=== PATIENT | male | born 1965 | race Caucasian/White ===

== ENCOUNTER 2019-01-28 12:15 | Emergency (ER) | payer BC ==
[~2019-01-28] VITALS: Ht 175.3 cm; Wt 110.2 kg
[~2019-01-28 12:15] MED LIST: COUMADIN 10MG T10 M1 PO; LOVENOX SQ; NORCO 5-325 TA1 EACH PO
[2019-01-28] MEDS ORDERED: CRESTOR10 MG PO (12:49)
[2019-01-28] MEDS ORDERED: METFORMIN HCL500 MG PO (12:49)
[2019-01-28] MEDS ORDERED: XARELTO20 MG PO (12:50)
[2019-01-28] MEDS ORDERED: JARDIANCE10 MG PO (12:50)
[2019-01-28] MEDS ORDERED: GABAPENTIN 100100 MG PO (12:50)
[2019-01-28] MEDS ORDERED: JANUVIA25 MG SUBQ (12:51)
[2019-01-28 12:58] LABS: BE(vivo) 0.1 mmol/L (-2 to +3); HCO3 22.7 mmol/L (22.0-26.0); PCO2 VENOUS 31.6 mmHg (41.0-51.0); PO2 VENOUS 91.8 mmHg (35.0-45.0)
[2019-01-28 13:57] VITALS: BP 130/80
== END 2019-01-28 13:57 | disposition home or self-care (01) ==
LOC: ER 12:15
PROVIDERS: Emergency Medicine
DX: M54.2 Cervicalgia (principal); Z77.098 Contact with and (suspected) exposure to other hazardous, chiefly nonmedicinal, chemicals; E11.9 Type 2 diabetes mellitus without complications; M19.90 Unspecified osteoarthritis, unspecified site; Z88.0 Allergy status to penicillin

== ENCOUNTER 2019-10-20 15:20 | Inpatient (IN) | payer BC ==
[~2019-10-20] VITALS: Ht 175.3 cm; Wt 112.0 kg
[~2019-10-20 15:20] MED LIST changes: +CRESTOR10 MG PO; +GABAPENTIN 100100 MG PO; +JANUVIA25 MG SUBQ; +JARDIANCE10 MG PO; +METFORMIN HCL500 MG PO; +XARELTO20 MG PO
[2019-10-20 15:24] VITALS: BP 115/65
[2019-10-20 16:52] LABS: ABSOLUTE NEUTROPHILS 14.5 thou/uL (1.4-8.2); BASOPHILS 0.4 % (0.0-2.0); EOSINOPHILS 0.2 % (0.0-3.0); HEMOGLOBIN 14.1 gm/dL (14.0-18.0); LYMPHOCYTES 5.4 % (24.0-44.0); MCH 28.9 pg (26.0-34.0); MCHC 33.5 g/dL (28.0-37.0); MCV 86.3 fL (80.0-100.0); PLATELET COUNT 356 thou/uL (150-400); RBC 4.86 mil/uL (4.50-6.00); RDW 14.5 % (10.5-14.5); WBC 17.2 thou/uL (4.0-11.0)
[2019-10-20 17:00] LABS: CALCIUM 9.4 mg/dL (8.5-10.1); CREATININE 1.2 mg/dL (0.7-1.3)
[2019-10-20 17:07] LABS: ALBUMIN 2.7 g/dL (3.4-5.0); TOTAL BILIRUBIN 0.7 mg/dL (<0.1-1.0); TOTAL PROTEIN 8.3 g/dL (6.4-8.2)
[2019-10-20 17:29] VITALS: BP 126/73
[2019-10-20] MEDS ORDERED: KETOCONAZOLE15 GM TOP (17:37)
[2019-10-20] MEDS ORDERED: ZEASORB AF71 GM TOP (17:37)
[2019-10-20] MEDS ORDERED: CEFDINIR300 MG PO (17:37)
[2019-10-20] MEDS ORDERED: MIRALAX119 GM PO (17:38)
[2019-10-20] MEDS ORDERED: NORCO 7.5-3251 EACH PO (17:38)
[2019-10-20] MEDS ORDERED: XARELTO15 MG PO (17:38)
[2019-10-20] MEDS ORDERED: MECLIZINE HCL25 M1 PO (17:39)
[2019-10-20] MEDS ORDERED: FLOMAX0.4 MG PO (17:40)
[2019-10-20] MEDS ORDERED: MUCINEX DM ER1 EACH PO (17:41)
[2019-10-20] MEDS ORDERED: SYMBICORT160 MCG/4. INH (17:41)
[2019-10-20] MEDS ORDERED: FLEXERIL PO (17:42)
[2019-10-20] MEDS ORDERED: DEMADEX20 MG PO (17:43)
[2019-10-20] MEDS ORDERED: VIAGRA100 MG PO (17:43)
[2019-10-20] MEDS ORDERED: ROSUVASTATIN CA20 MG PO (17:43)
[2019-10-20 18:26] VITALS: BP 124/68
--- NOTE | 2019-10-20 18:50 | NUR ---
54 YO MALE ADMITTED TO 439 FROM ED. A&OX4, AMBULATES SELF IN ROOM. IV INTACT IN R AC. VSS. L PLANTER HAS PUNCTURE THAT IS DRAINING SEROUSANG. FLUID. VSS. L FOOT AND LEG IS RED, SWOLLEN AND WARM TO TOUCH. PT HAS TYPE 2 DM. ORIENTED PT TO ROOM AND CALL LIGHT. LUNCH BOX TRAY GIVEN. WILL CONT POC.
[2019-10-20 19:37] VITALS: BP 145/76
--- NOTE | 2019-10-20 22:59 | NUR ---
PT JUST ESCORTED OUT OF THE BUILDING BY SECURITY. PT LEFT AMA.HE SIGNED AMA PAPERS.
--- NOTE | 2019-10-21 00:44 | NUR ---
PT DC/D BY ERROR-READMITTED
[2019-10-21 04:25] VITALS: BP 120/66
[2019-10-21 05:07] LABS: GLYCOHEMOGLOBIN (HGB A1C) 9.5 % (4.8-5.6)
--- NOTE | 2019-10-21 06:12 | NUR ---
ADMISSION ASSESSMENT COMPLETED. PT IS ALERT AND ORIENTED AND ABULATES WELL. HOWEVER BEEN USING URINAL THRO THE NIGHT.AFEBRILE. LEFT FOOT WITH SWELLING, REDNESS AND WARMTH. RATES PAIN AT AROUND 5-7/10; GETTING HYDROCODONE WITH RELIEF. STARTED ON IV ABTS. PT ATE SOME BOXED DINNER WELL. NO GI DISCOMFORT.NO DISTRESS.CALL LIGHT WITHIN REACH. HE MAKES NEEDS KNOWN.
[2019-10-21 08:30] VITALS: BP 127/72
--- NOTE | 2019-10-21 12:48 | NUR ---
PT ADMITTED RELATED TO CELLULITIS L FOOT. CM REVIEWED CHART AND SPOKE WITH CARE TEAM. CM SPOKE WITH PT OVER THE PHONE THIS DAY. PT APPEARED TO BE A&O X4. CM ROLE INTRODUCED. PT INDICATED HE LIVES ALONE IN A HOUSE WITH 2 STEPS TO ENTER AND NO INSIDE. 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 PT INDICATED HE ANTICIAPTES RETURNING HOME ONCE MEDICALLY STABLE. CM TO FOLLOW INDICATED WITH DC PLANNING.
[2019-10-21 15:38] VITALS: BP 140/86
--- NOTE | 2019-10-21 16:40 | NUR ---
PT A&OX4. AMBULTES SELF IN ROOM. IV INTACT IN R AC. L FOOT IS SWOLLEN, RED AND WARM TO TOUCH. VSS NO TEMP TODAY. TOLERATING PO PAIN MED WELL. US HAS BEEN COMPLETE. WILL CONT POC.
[2019-10-21 21:52] VITALS: BP 119/70
--- NOTE | 2019-10-22 03:03 | NUR ---
ASSUMED PT CARE AT 1900. PT REPORTS PAIN 4/10, PAIN MEDS GIVEN BEFORE BED. L FOOT DRESSING DRY AND INTACT. PT USES URINAL. ANTIBIOTICS INFUSING PER ORDER. CURRENTLY RESTING COMFORTABLY IN BED WITH CALL LIGHT IN REACH.
[2019-10-22 08:10] VITALS: BP 135/70
--- NOTE | 2019-10-22 14:38 | NUR ---
PT HAVING MRI THIS DAY. CARE TEAM INDICATING POSSIBLE 5TH RAY AMPUTATION. CM TO FOLLOW INDICATED WITH DC PLANNING.
--- NOTE | 2019-10-22 14:56 | NUR ---
WOUND CARE F/U; ROUNDING WITH DR GOMEZ. THE LEFT 5TH TOE WAS ASSESSED. DISCOLORED,NON VIABLE LOOKING. TENDER. NO ODOR. RECOMMENDATIONS; CONTINUE CURRENT POC
--- NOTE | 2019-10-22 20:05 | NUR ---
ASSUMED CARE OF PATIENT AT 0715, PATIENT ALERT AND ORIENTED X 4. UP AD VADIM IN ROOM. LEFT FOOT CELLULITIS, ORTHO/DR CARRENO SAW THE PATIENT THIS AM, MRI ORDERED OF LEFT FOOT. C/O PAIN WITH LEFT FOOT, HYDROCODONE 1 TABLET GIVEN X 2 THIS SHIFT. NEW IV LEFT HAND IN PLACE. WILL CONTINUE TO MONITOR.
[2019-10-22 21:32] VITALS: BP 131/75
[2019-10-23 05:07] VITALS: BP 123/71
[2019-10-23 06:10] LABS: HEMOGLOBIN 13.7 gm/dL (14.0-18.0); MCHC 33.4 g/dL (28.0-37.0); RBC 4.72 mil/uL (4.50-6.00); RDW 14.3 % (10.5-14.5); WBC 8.6 thou/uL (4.0-11.0)
[2019-10-23 06:18] LABS: CALCIUM 9.7 mg/dL (8.5-10.1); CREATININE 1.2 mg/dL (0.7-1.3); POTASSIUM 4.2 mmol/L (3.5-5.1)
[2019-10-23 07:15] VITALS: BP 115/63
--- NOTE | 2019-10-23 09:18 | NUR ---
PROGRESS PT A/O X 4 UP AD VADIM HAD TEMP OF 102.5 AT SHIFT CHANGE HYDROCODONE GIVEN WITH EFFECT TEMP DOWN TO 99.2 ON RECHECK. LEFT FOOT DRESSING CHANGED D/T SATURATED WITH BLOOD LEFT 5TH TOE DUSKY SWOLLEN WITH ALOT OF EXUDATE BETWEEN TOES CLEANSED WITH NS WRAPPED WITH GAUZE, KERLIX ABD AND LEX WRAP. IV ABT'S GIVEN ORDERED PT NPO AFTER MIDNIGHT PENDING DEBRIDEMENT TODAY.
--- NOTE | 2019-10-23 11:51 | NUR ---
ASSUMED CARE AT 0700. PT ALERT AND ORIENTED. NO COMPLAINTS AT THIS TIME. BLOOD SUGARS ARE HIGH, TOLERATING CARB CONTROL DIET. PAIN MEDS GIVEN PRN. DRESSING C/D/I. WILL CONTINUE TO MONITOR
--- NOTE | 2019-10-23 14:58 | NUR ---
PT HAD MRI THIS DAY CARE TEAM PLANS FOR I AND D OF ANSCESSES AND 5TH TOE PARTIAL FOOT AMPUTATION TOMORROW. PT CONTINUES ON IV ABX. CM TO FOLLOW INDICATED WITH DC PLANNING.
[2019-10-23 19:50] VITALS: BP 133/70
--- NOTE | 2019-10-24 02:58 | NUR ---
ASSESSED AT START OF SHIFT PT A&OX4. IV INTACT AND ABX INFUISING. LFT FOOT DRESSING INTACT. PAIN MEDS GIVEN SEE EMAR. BLOOD SUGAR CHECKED AND INSULIN ADMINISTERED. PT NPO AT MIDNIGHT. CALL LIGHT IN REACH AND WILL CONT WITH POC TILL EOS.
[2019-10-24 03:35] VITALS: BP 109/58
[2019-10-24 07:25] VITALS: BP 127/71
--- NOTE | 2019-10-24 10:48 | HC ---
[facility] [place] [address] CONSULTATION Name: AJ BAIRES Room #: 439-P ADM IN M.R.#: [id number] Admission: 10/20/19 Attend Phys: Shaquille Jamil MD Discharge: Date of : 67 Report #: [id number] THIS REPORT FOR: cc: Oscar Manzanares MD, Thomas P. MD Al-Mubaslat, Ahmad MD ~ CC: Shaquille Manzanares DATE OF SERVICE: 10/23/2019 ENDOCRINE CONSULTATION CONSULTING PHYSICIAN: Dr. Jamil. REASON FOR CONSULTATION: Uncontrolled type 2 diabetes mellitus. HISTORY OF PRESENT ILLNESS: This is a 54-year-old male patient whose medical background is significant for type 2 diabetes mellitus, peripheral diabetic neuropathy, thromboembolic disease, hyperlipidemia, and hypertension. The patient has been dealing with progressive issues pertaining to a puncture wound of the left foot that has not responded to outpatient antibiotic therapy and was admitted for further care and monitoring. The patient notes that he has had diabetes mellitus for many years and that he is maintained currently on a regimen of Jardiance 10 mg daily, Januvia 100 mg daily, metformin 1000 mg b.i.d., Lantus insulin 50 units twice a day, and Humalog insulin 40, 16, ____ units t.i.d. a.c. The patient notes that he maintains fairly good control of his blood glucose values with most running between the 120 and 180 mg/dL range with only occasional hyperglycemic excursions. He denies issues with hypoglycemia. The patient is not aware of issues of diabetic retinopathy or nephropathy, but has peripheral diabetic neuropathy, which he uses gabapentin for. The patient is not aware of history of coronary artery disease. He has had a DVT about a year ago. The patient is hyperlipidemic and is maintained on rosuvastatin therapy and is also known to have erectile dysfunction and BPH. REVIEW OF SYSTEMS: CONSTITUTIONAL: Negative for major difficulties with fatigue, tiredness, fever, chills or body weight changes. HEENT: Negative for sore throat, sinus pain, or ear drainage. PULMONARY: Occasional shortness of breath and cough, but no hemoptysis. CARDIAC: Negative for chest pain, palpitations, syncope, or presyncope. GASTROINTESTINAL: Negative for abdominal pain, nausea, vomiting or changes in [facility] [address] [place] [address] CONSULTATION Name: VIRYAJ DEBBY Room #: 439[facility] IN ..#: [id number] Admission: 10/20/19 Attend Phys: Shaquille Jamil MD Discharge: Date of : 67 Report #: [id number] bowel movement frequency. NEUROLOGY: Negative for loss of consciousness, seizure activity or frequent severe headaches. He does have baseline peripheral neuropathy that he utilizes gabapentin for. UROLOGY: Baseline BPH, ED uses sildenafil and tamsulosin. PSYCHIATRIC: Negative for delusions or hallucinations. Otherwise, review of systems noncontributory unless mentioned in the HPI. PAST MEDICAL HISTORY: 1. Type 2 diabetes mellitus. 2. Hyperlipidemia. 3. Peripheral diabetic neuropathy. 4. DVT a year ago. 5. BPH. 6. Erectile dysfunction. 7. Nonhealing left foot wound. 8. Osteoarthritis. 9. Obesity. OUTPATIENT MEDICATIONS: Gabapentin 100 mg t.i.d., Xarelto 15 mg b.i.d., [place] 7.5/325 mg t.i.d., meclizine q.6 hours p.r.n. dizziness, Flomax 0.4 mg daily, Symbicort 160/4.5 mg b.i.d., Flexeril 10 mg t.i.d., Demadex 20 mg daily, Crestor 20 mg daily, Viagra 100 mg p.r.n., metformin 1000 mg b.i.d., Jardiance 10 mg daily, Januvia 100 mg daily, Lantus 50 units b.i.d., and Humalog 40 units before breakfast, 16 units before lunch, ____ units before dinner. ALLERGIES: PENICILLIN. FAMILY HISTORY: Noncontributory. SOCIAL HISTORY: The patient denies use of tobacco, alcohol or illicit drugs. He works for the [employer], [place]. PHYSICAL EXAMINATION: GENERAL: This is a middle-aged male patient who is not in apparent pain or distress. VITAL SIGNS: Blood pressure is 115/63 mmHg, heart rate is 79 beats per minute, respiration 18 per minute, and temperature 36.7 Celsius. CONSTITUTIONAL: The patient is sitting upright in bed, appears mostly comfortable, not in apparent distress. HEENT: Anicteric sclerae. Intact ocular motions. NECK: Supple, without JVD, carotid bruits or lymphadenopathy. I do not appreciate thyromegaly. CHEST: Noted for moderate air entry bilaterally with scattered rales. HEART: Regular rate and rhythm without murmurs or gallops. [facility] [address] [place] [address] CONSULTATION Name: AJ BAIRES Room #: 439-P ADM IN M.Tien.#: [id number] Admission: 10/20/19 Attend Phys: Shaquille Jamil MD Discharge: Date of : 67 Report #: [id number] ABDOMEN: Obese, but soft and lax. No guarding. Active bowel sounds. EXTREMITIES: Lower extremity exam noted for his left foot wrapped in surgical dressing. Trace edema. NEUROLOGIC: Awake, alert and oriented to time, place and person. The remainder of his examination is largely nonfocal other than for peripheral sensory deficits. PSYCH: Interactive, appropriate. Normal thought process sought of flat mood and affect. LABORATORY DATA: Blood glucose values are reviewed at length and they have ranged from 105-360 mg/dL and have been predominantly over 220 mg/dL for the past 24 hours. Other than that, sodium 131, potassium 4.2, chloride 97, CO2 of 28, anion gap 6, BUN 22, creatinine 1.2, and glucose 207. AST 17, total bilirubin 0.7, calcium 9.7, alkaline phosphatase 132, ALT 24, total protein 8.3, albumin 2.7, EGFR 63. INR 1.1. White blood count 8.6, hemoglobin 13.7, hematocrit 41, and platelets 398. Hemoglobin A1c 9.5%. ASSESSMENT AND PLAN: 1. Type 2 diabetes mellitus. The patient has a longstanding history of type 2 diabetes mellitus and is maintained on a rather extensive regimen with an outlook of severe insulin resistance, judging by his very high daily insulin needs. During this hospital stay so far, the patient has not been on his usual insulin regimen and has demonstrated a gradual extent of his blood glucose values. I will reintroduce coverage with basal bolus in the form of Lantus insulin 20 units b.i.d. as well as Humalog 10 units before meals will continue to support him with Humalog supplemental scale low intensity. I will continue to hold his oral regimen comprised metformin and Jardiance, but we could certainly substitute Januvia for Tradjenta. Blood glucose monitoring will continue a.c. and at bedtime and further therapeutic adjustments will be made accordingly. 2. Hyperlipidemia. The patient is maintained on rosuvastatin therapy. He is currently maintained on atorvastatin 20 mg at bedtime, which is our formulary statin, he is to continue with the same until his discharge, at which time he can resume rosuvastatin therapy. 3. Diabetic neuropathy. The patient has a history of peripheral diabetic neuropathy and is maintained on gabapentin. He is receiving 300 mg p.o. t.i.d. and appears to be under adequate control with this regimen. He is to continue with the same. 4. Diabetic foot. The patient has a nonhealing left foot wound, he is currently on vancomycin and wound care team is following closely. [place] [address] CONSULTATION Name: AJ BAIRES Room #: 439-P [facility] IN ..#: [id number] Admission: 10/20/19 Attend Phys: Shaquille Jamil MD Discharge: Date of : 67 Report #: [id number] I certainly appreciate this consultation by Dr. Jamil. <ELECTRONICALLY SIGNED> By: Isaiah Lerner MD 10/24/19 1048 [id number] 1419 Isaiah Lerner MD /luz
--- NOTE | 2019-10-24 11:20 | NUR ---
RECIEVED REPORT FROM POST OP/LORAINE PT TO COME TO ROOM 439.
[2019-10-24 11:45] VITALS: BP 123/77
--- NOTE | 2019-10-24 12:18 | NUR ---
PT ARRIVED TO ROOM.FROM POST OP VS TAKEN WNL. O2 2L/NC 97 %. GIVEN 0900 AM MEDS AND 1200 IV ABT AND INSULIN. GAVE PATIENT BOX MEAL AND SPRITE. PT NO N&V. GIVEN PRN PAIN MED FOR GENERAL PAIN. CHANGED DIET TO DM FOR LUNCH PT IS HUNGRY.MIKEG D/I. PT PLEASANT AND COOPERATIVE WITH CARE.
--- NOTE | 2019-10-24 12:51 | NUR ---
Assess due to dx left foot cellulitis, s/p partial foot amputation. Hx diabetes, A1C 9.5%. BG starting to improve this hospitalization with endocrologist following, medication adjustment. Eating 100% of meals and high protein food choices. Wt stable, obese. Low nutrition risk
[2019-10-24 14:00] VITALS: BP 118/71
--- NOTE | 2019-10-24 14:07 | NUR ---
SW reviewed chart and spoke with nursing and attending physician. Pt had left 5th toe and partial left foot amputation today. Awaiting cultures per ID. Pt is currently on IV abx. No weekend discharge anticipated. PT ordered to evaluate pt. SW is following to assist as needed with discharge planning.
[2019-10-24 15:22] VITALS: BP 105/59
[2019-10-24 19:20] VITALS: BP 113/68
--- NOTE | 2019-10-25 02:50 | NUR ---
PT CARE ASSUMED AT 1930 WITH PT IN BED.PT HAD I$D DONE ON 5TH LT TOE.DRESSING I/D/C.PT IS ACCUCHECK ACHS.IV ACCESS ON RIGHT WRIST.PT APPEARED TO BE IN NO DISTRESS.WILL CONTINUE TO MONITOR PER POC
[2019-10-25 03:44] VITALS: BP 117/67
[2019-10-25 09:02] VITALS: BP 134/73
--- NOTE | 2019-10-25 11:54 | O ---
[facility] [address] OPERATIVE REPORT Name: AJ BAIRES Room #: 439-P ADM IN M.R.#: [id number] Admission: 10/20/19 Attend Phys: Shaquille Jamil MD Discharge: Date of : 67 Report #: [id number] THIS REPORT FOR: cc: Oscar Manzanares MD, Thomas P. MD VanDenBerghe, Gregory R. MD ~ CC: Shaquille Manzanares PREOPERATIVE DIAGNOSES: Left lateral foot abscess, left fifth toe gangrene, osteomyelitis involving the lateral forefoot. POSTOPERATIVE DIAGNOSES: Left lateral foot abscess, left fifth toe gangrene, osteomyelitis involving the lateral forefoot. PROCEDURE PERFORMED: 1. Partial left foot amputation involving the left fifth toe and distal metatarsal. 2. Irrigation and debridement of left foot abscess. SURGEON: Chirag Smith MD ANESTHESIA: General. FLUIDS: 450 mL crystalloid. ESTIMATED BLOOD LOSS: Less than 5 mL. SPECIMENS: Left fifth toe and abscess cultures. DESCRIPTION OF PROCEDURE: After proper identification of the patient and operative site in preoperative holding area, the operative site was signed by myself. We reviewed the patient's MRI findings and discussed the potential areas requiring surgical debridement. We discussed the fifth and possibly the fourth toe may need to be amputated depending on the extent of his abscess and infectious spread. We discussed a portion of the metatarsals may also need to be removed. The patient strongly wished to preserve the fourth toe if at all possible. We discussed the potential even following the surgical debridement for nonhealing wounds or ulcerations or persistence of the infection will leave as much tissue that we think is viable as possible. Questions were encouraged, all were answered. The patient was brought back to the operative suite, and after induction of a general anesthetic per endotracheal tube, the left lower extremity was elevated. Tourniquet was applied to the upper thigh. The limb was sterilely prepped and draped in the usual manner. Purulent drainage was noted from the [facility] [address] [place] [address] OPERATIVE REPORT Name: AJ BAIRES Room #: 439- ADM IN M.R.#: [id number] Admission: 10/20/19 Attend Phys: Shaquille Jamil MD Discharge: Date of : 67 Report #: [id number] spaces as well as dark dusky fifth toe. Erythema was noted over the forefoot that was primarily dorsal in nature. An elliptical type incision around the toe with some longitudinal extension over the more dorsal lateral aspect of the fifth metatarsal was planned. Skin was incised sharply. Full thickness skin flaps were developed. A purulent drainage was cultured and sent for analysis. The fifth toe was removed in its entirety and sent as a specimen. There was some tracking of the abscess dorsally into the more lateral extensor compartment and this was debrided. Small amount of more plantarly based spread in the soft tissues and skin were then carefully debrided of any what appeared to be devitalized tissue. It appeared that the fourth toe could be preserved and with the MRI changes in the fifth metatarsal head as well as an inability to close the wound and some mild softening of this bone resection of the more distal aspect of the fifth metatarsal was noted. So, the areas of the abscess noted on the MRI were thoroughly explored and debrided, irrigated with antibiotic irrigant until a healthy appearing tissue base was noted. This was then closed with 2-0 nylon in a simple [id number] fashion. The skin at this point appeared viable, especially more proximally as it extended towards the webspace. The skin is inherently little thinner. Sterile dressing was applied. This was overwrapped with Kerlix and Ronaldo bandage. Tourniquet was deflated. He was awakened and transferred to the recovery room in stable condition. <ELECTRONICALLY SIGNED> By: Chirag Smith MD 10/25/19 1154 1050 1153 Chirag Smith MD /nt
--- NOTE | 2019-10-25 11:54 | HC ---
[facility] [place] [address] CONSULTATION Name: AJ BAIRES Room #: 439-P ADM IN M.R.#: [id number] Admission: 10/20/19 Attend Phys: Shaquille Jamil MD Discharge: Date of : 67 Report #: [id number] THIS REPORT FOR: cc: Oscar Manzanares MD, Thomas P. MD VanDenBerghe, Gregory R. MD ~ CC: Shaquille Manzanares CHIEF COMPLAINT: Left lateral foot infection. HISTORY OF PRESENT ILLNESS: The patient is a very pleasant 54-year-old gentleman seen today for evaluation of his left lateral foot. His initial examination was on 10/22/2019. The patient has underlying diabetes and peripheral neuropathy. He has had a plantarly based callus on his fifth metatarsal for some time. He notes 5-7 days prior to admission, some swelling about the lateral aspect of his foot distally. He was placed on cephalosporin antibiotic as an outpatient, but did not note improvement. He then noticed more discoloration of the toe and increased pain and discomfort with a low-grade fever and he was brought into the hospital for further evaluation. He had an elevated white count and was placed on IV antibiotics and seen by Wound Care as well as Dr. Doherty. PAST MEDICAL HISTORY: Significant for diabetes, peripheral neuropathy, arthritis, DVT, hyperlipidemia. PAST SURGICAL HISTORY: Right rotator cuff repair, hernia repair and left rotator cuff repair. FAMILY HISTORY: COPD. SOCIAL HISTORY: The patient is single but engaged. Nonsmoker. Denies alcohol intake. 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 ALLERGIES: PENICILLIN. CURRENT MEDICATIONS: Please see current MAR. PHYSICAL EXAMINATION: VITAL SIGNS: Revealed temperature of 36.9, pulse of 86, blood pressure of 135/70. EXTREMITIES: Examination of the lower extremities revealed that the left foot had dorsal erythema extending mid aspect of the forefoot. This was primarily laterally based. There was breakdown of the skin within fourth webspace duskiness and a dark coronado to black appearance of the toe was noted. [facility] [address] [place] [address] CONSULTATION Name: VIRYAJ DEBBY Room #: 439-P [facility] IN M.R.#: [id number] Admission: 10/20/19 Attend Phys: Shaquille Jamil MD Discharge: Date of : 67 Report #: [id number] sensation was noted in the lower extremities bilaterally. There was a callus over the plantar aspect of the lateral and distal forefoot. No obvious wound was noted here. Mild foot swelling was appreciated without obvious extension of erythema or swelling into the legs. This area was tender to palpation. Radiographs of left foot revealed subcutaneous air within the soft tissues and gas along the lateral forefoot, questionable periosteal reaction of the fifth proximal phalanx. IMPRESSION: Left lateral foot pain, abscess, probable osteomyelitis, gangrenous changes of the fifth toe with mild fourth toe changes. PLAN: Reviewed treatment options with the patient. He has been seen by Dr. Doherty of Infectious Disease and Wound Team. I have recommended an MRI for further evaluation of the soft tissue abscess. Depending on the MRI results, we discussed potential operative treatment options that will likely include partially amputating a portion of his foot involving the fifth toe and/or potentially extending into the metatarsal regions. We discussed the potential for further spread and infection despite surgical intervention that with this small vessel disease and his diabetes, either this can make healing of these tissues difficult. We will continue to have the Wound Team monitor and make recommendations if he develops any nonhealing areas of potential incisions. Questions were encouraged, all were answered. <ELECTRONICALLY SIGNED> By: Chirag Smith MD 10/25/19 1154 1057 1249 Chirag Smith MD /nt
[2019-10-25 16:04] VITALS: BP 111/67
[2019-10-25 20:20] VITALS: BP 127/69
--- NOTE | 2019-10-25 20:21 | NUR ---
Assumed pt care this am, post op day 1 , dressing is c/d/i, seen by surgeon, dressing to be change by MD tomorrow. VS stable, diet and medications are tolerated well, pain is well controlled no medications was required. Pt is able to ambyulate within his room. POC followed ,with no signs pr verba;lizations of distress have been noted.
[2019-10-26 03:13] VITALS: BP 122/68
--- NOTE | 2019-10-26 04:27 | NUR ---
PT AMBULATING TO BATHROOM INDEPENDENTLY AND IS TOLERATING FAIR. DENIES NEED FOR PAIN MEDICATION. RESTING COMFORTABLY. NO NEEDS VOICED. CALL LIGHT WITHIN REACH. FREQUENT OBSERVATION.
[2019-10-26 07:36] VITALS: BP 119/76
[2019-10-26 08:08] LABS: HEMATOCRIT 41.4 % (42.0-52.0); HEMOGLOBIN 13.7 gm/dL (14.0-18.0); MCH 28.6 pg (26.0-34.0); MCHC 33.2 g/dL (28.0-37.0); MCV 86.1 fL (80.0-100.0); RBC 4.81 mil/uL (4.50-6.00); RDW 14.4 % (10.5-14.5); WBC 8.2 thou/uL (4.0-11.0)
[2019-10-26 08:17] LABS: CALCIUM 9.5 mg/dL (8.5-10.1); CREATININE 0.9 mg/dL (0.7-1.3); POTASSIUM 3.8 mmol/L (3.5-5.1)
--- NOTE | 2019-10-26 15:49 | NUR ---
PT A&OX4, VSS, DENIES PAIN. WOUND DOCTOR IN TO CHANGE DRESSING ON LEFT FOOT. DRESSING REMAINS C/D/I AT THIS TIME. NEW IV PLACED IN LEFT FA, ABX RAN ORDERED. NO SIGNS OF DISTRESS. WILL CONTINUE TO MONITOR.
[2019-10-26 16:19] VITALS: BP 118/71
[2019-10-26 20:45] VITALS: BP 120/76
[2019-10-27] VITALS (7 sets, daily range): BP systolic 118–148; BP diastolic 69–83
--- NOTE | 2019-10-27 03:05 | NUR ---
PT IS A/O X4.PT CARE ASSUMED AT 1900 WITH PT IN BED.PT IS UP AND VADIM AND ALSO USES A URINAL.PT IS ACCUCHECK ACHS.PT APPEARED TO BE IN NO DISTRESS.DRESSING ON LT FOOT C/D/I.WILL CONTINUE TO MONITOR PER POC
--- NOTE | 2019-10-27 09:10 | HC ---
[facility] [place] [address] CONSULTATION Name: AJ BAIRES Room #: 439-P ADM IN M.R.#: [id number] Admission: 10/20/19 Attend Phys: Shaquille Jamil MD Discharge: Date of : 67 Report #: [id number] THIS REPORT FOR: cc: Oscar Manzanares MD, Thomas P. MD Althoff, Jeffrey R. MD ~ CC: Shaquille Manzanares DATE OF SERVICE: 10/21/2019 CHIEF COMPLAINT: Diabetic foot infection, left foot. HISTORY OF PRESENT ILLNESS: This is a 54-year-old male patient who was admitted to the hospital through the Emergency Department. He normally sees Dr. Oscar Manzanares. Has developed a wound involving his left foot. He has been on outpatient Omnicef. The area has not improved over the last 48 hours. He has had increasing pain, swelling, drainage and fever, is admitted and I have been asked to see him with regard to wound care. The patient denies any specific injury to this area. PAST MEDICAL HISTORY: Positive type 2 diabetes mellitus, hyperlipidemia, arthritis, DVT on long-term anticoagulation, peripheral neuropathy. PAST SURGICAL HISTORY: He has had previous hernia repair, right rotator cuff surgery as well. SOCIAL HISTORY: No history of tobacco use, occasional alcohol use on a social basis. 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 FAMILY HISTORY: Positive for COPD in his mother. ALLERGIES: PENICILLIN. MEDICATIONS: Include Neurontin, Zeasorb, ketaconazole, Omnicef, Xarelto, [place], MiraLax, meclizine, Flomax, Symbicort, Mucinex, Flexeril, Demadex, Viagra. REVIEW OF SYSTEMS: CONSTITUTIONAL: The patient does complain of fever and chills. Denies weight loss. NEUROLOGICAL: The patient does have peripheral neuropathy. Denies focal weakness, numbness or tingling. EYES: The patient denies any visual changes, redness or drainage. ENT: The patient denies earache, nasal drainage, sore throat. CARDIOVASCULAR: The patient denies chest pain, palpitations or diaphoresis. [address] [address] CONSULTATION Name: AJ BAIRES Room #: 439-P [facility] IN ..#: [id number] Admission: 10/20/19 Attend Phys: Shaquille Jamil MD Discharge: Date of : 67 Report #: [id number] PULMONARY: The patient denies cough or shortness of breath. GASTROINTESTINAL: The patient denies nausea, vomiting, diarrhea or abdominal pain. ORTHOPEDIC: The patient does complain of significant pain, swelling and redness, but no pain involving the left lower extremity. Other systems in a 14-point review of systems are negative. PHYSICAL EXAMINATION: VITAL SIGNS: At this time include temperature 37.2, pulse 87, respiratory rate 17, blood pressure 140/86. GENERAL: This is a well-developed male patient who appears to be in no distress. HEENT: Head normocephalic. Nose and throat are clear. NECK: Supple. LUNGS: Clear. HEART: Sounds are present. ABDOMEN: Bowel sounds present. EXTREMITIES: Lower extremities demonstrate significant swelling, redness, tenderness and drainage from the left foot. There is ulceration involving the fifth toe and the fifth toe appears to be marginally viable. I have peeled away some callused tissue releasing some purulent material and cultures obtained from this area. NEUROLOGIC: The patient has diminished light touch sensation in both lower extremities. I am able to palpate distal pulses. Neurologically, the patient is alert and oriented and appropriate. LABORATORY DATA: Include sodium 134, potassium 4.0, chloride 100, CO2 21, BUN 14, creatinine 1.2, glucose of 150. Hemoglobin A1c is 9.5. Lactic acid 1.3. White blood cell count 17.2 with hemoglobin 14.1. CLINICAL IMPRESSION: 1. Diabetic foot infection with compromised left fifth toe and possible deep space abscess. 2. Cellulitis and abscess of the left foot. 3. Diabetic peripheral neuropathy. 4. Morbid obesity. RECOMMENDATIONS: At this point in time, we will recommend empiric antibiotic therapy, pending culture and sensitivity that I obtained at the bedside today. Recommend a dry gauze dressing. Recommend possible MRI, but he will also need orthopedic evaluation. Likely, the fifth toe and ray are not viable and will need partial amputation of the foot. He will need ongoing nutritional support, [address] [address] CONSULTATION Name: AJ BAIRES Room #: 439-P [facility] IN M.R.#: [id number] Admission: 10/20/19 Attend Phys: Shaquille Jamil MD Discharge: Date of : 67 Report #: [id number] continuation of current other medications. I appreciate being asked to see him in consultation. <ELECTRONICALLY SIGNED> By: Abdoul Weeks MD 10/27/19 0910 [id number] Abdoul Weeks MD /nt
--- NOTE | 2019-10-27 10:04 | NUR ---
PT CARE ASSUMED AT 0700. A&Ox4. GOES BY [facility]. [facility] WITH COVERAGE ON BOARD AND [facility]ANTUS IN THE AM. IV IS PATENT WITH NO REDNESS OR EDEMA, SALINE LOCKED. NO COMPLAINTS OF PAIN. UP WITH THE WEINSTEIN. USES THE URINAL. CALL LIGHT IN REACH.
--- NOTE | 2019-10-27 13:21 | NUR ---
CM FOLLOWED UP WITH ID AND INDICATED THAT PT WOULD LIKELY NEED HOME IV ABX UPON DC. CARE TEAM INDICATED THAT PT IS TO GET A PICC PLACED. CM AWAITING FINAL DC AVX RECS. CM SPOKE WITH PT AND HE IS AWARE. CM EXPLAINED [facility]. PT INDICATED NO PREFERENCE FOR PROVIDERS. CM FAXED REFERRAL TO [facility]. CM INIDICATED THAT THEY WILL NOTIFY CM OF COVERAGE FOR DRUG AND SUPPLIES AND THAT CM WOULD FOLLOW UP WIHT PT. CM TO FOLLOW INDICATED WITH POSSIBLE DC HOME THIS DAY.
[2019-10-27] MEDS ORDERED: HUMALOG100 UNIT/1 SUBQ (13:46)
[2019-10-27] MEDS ORDERED: ERTAPENEM1 GM IV (13:46)
[2019-10-27] MEDS ORDERED: JANUVIA100 MG PO (13:46)
[2019-10-27] MEDS ORDERED: LANTUS SUBQ (13:46)
[2019-10-27] MEDS ORDERED: JARDIANCE10 MG PO (13:46)
--- NOTE | 2019-10-27 14:40 | NUR ---
DA INDICATED THAT PT IS COVERED AT 100% FOR DRUG AND SUPPLIES. CM SENT REFERRAL TO [facility] AND THEY CAN ACCEPT. MARY NOTIFIED PT HE HAD PICC PLACED AND IS GETTING FIRST DOSE OF DC IV ABX AT 1500. PT IS AWARE AND AGREEABLE WITH [facility] AND [facility]. HE ASKED THAT CM CALL AND SPEEK WITH HIS SIG OTHER [facility]ES ABOUT IF THEY WANTED BEDSIDE TEACH DONE PRIOR TO DC TODAY OR WERE OK WITH FOLLOW UP EDUCATUON TOMORROW. CM SPOKE WITH HER AND SHE INDICATED SHE HAD TAKEN THE DAY OFF TOMORROW AND WOULD BE FINE WITH EDUCATIONAL VISIT TOMORROW. NO OTHER CM INTERVENTION INDICATED. CASE CLOSED.
--- NOTE | 2019-10-27 15:07 | PATH ---
[facility] [address] [place] [address] PATHOLOGY RPT PROCEDURE Name: AJ FALCON Room #: 439-P ADM IN M.R.#: [id number] Admission: 10/20/19 Date of : 67 Discharge: Report #: [id number] Path Case #: [id number] [facility] Accession Number: [id number] . 01 Material submitted: . foot - DISTAL FIFTH METATARSAL. Modifiers: left . 01 Clinical history: . Cellulitis left foot . 02 Diagnosis: Toe, distal fifth toe left foot, amputation: - Skin and subcutaneous tissue showing ulceration along with marked acute inflammation as well as fibrinoid degeneration. - Acute inflammation extends into underlying bone associated with acute osteomyelitis. - Inked margins with marked acute inflammation. (IUV/db; 10/27/2019) LBQ 10/27/2019 1415 Local . 02 Electronically signed: . Susan Blanco MD, Pathologist NPI- [id number] . 01 Gross description: . The specimen is received in formalin, labeled "Aj Falcon, distal fifth metatarsal left foot". Received is an amputated digit measuring 4.7 x 3.0 x 2.5 cm in greatest dimensions. The bone margin is smooth and concave in appearance, consistent with disarticulation. The soft tissue margin is pink-red to slightly necrotic in appearance. The bone and soft tissue margins are inked black. The nail is present display in a pale mcfarland and grossly unremarkable appearance. The epidermal surface is dusky pink-coronado to yellow-green and sloughing in appearance. A full-thickness longitudinal cross-section is submitted from proximal to distal aspects in cassettes A1 and A2, following decalcification. (CAA; 10/24/2019) QAC/QAC 10/24/2019 1325 Local . 02 Pathologist provided ICD-10: L97.529, M86.172, L98.9 . 02 CPT . 175661, [id number] Specimen Comment: A courtesy copy of this report has been sent to [phone] Specimen Comment: Report sent to Performed at: [address] [place] [address] PATHOLOGY RPT PROCEDURE Name: AJ FALCON Room #: 439-P ADM IN M.R.#: [id number] Admission: 10/20/19 Date of : 67 Discharge: Report #: [id number] Path Case #: [id number] [address] [facility] [address], [place], [place] [id number] MD Alfonso Odell MD Phone: [phone] Performed at: [address] [id number] MD Susan Blanco MD Phone: [phone]
--- NOTE | 2019-10-27 17:02 | NUR ---
VAT CONSULTED FOR A PICC FOR HOME ABX. 4FRSLPICC PLACED LUABASILIC. AFTER CXR ADDED 5CM FOR TIP TO BE MID-DISTAL SVC. OK TO USE PER PROTOCOL. PLEASE SEE INSERTION NOTE FOR DETAILS
== END 2019-10-27 18:04 | disposition home health service (06) | DRG 853 ==
LOC: ER 15:20 → 4S 17:36 → EROBS 17:36 → 4S 18:22
PROVIDERS: Nurse Practitioner Family; ADMIT Hospitalist
PROC: 0Y6N0ZF Detachment at Left Foot, Partial 5th Ray, Open Approach (ICD-10-PCS; principal; 2019-10-20)
PROC: 02HV33Z Insertion of Infusion Device into Superior Vena Cava, Percutaneous Approach (ICD-10-PCS; 2019-10-27)
DX: A41.9 Sepsis, unspecified organism (principal); E43 Unspecified severe protein-calorie malnutrition; L03.116 Cellulitis of left lower limb; L02.612 Cutaneous abscess of left foot; M86.172 Other acute osteomyelitis, left ankle and foot; D72.829 Elevated white blood cell count, unspecified; E78.5 Hyperlipidemia, unspecified; E11.42 Type 2 diabetes mellitus with diabetic polyneuropathy; N40.0 Benign prostatic hyperplasia without lower urinary tract symptoms; M19.90 Unspecified osteoarthritis, unspecified site; E66.01 Morbid (severe) obesity due to excess calories; E11.69 Type 2 diabetes mellitus with other specified complication; Z86.718 Personal history of other venous thrombosis and embolism; Z68.36 Body mass index [BMI] 36.0-36.9, adult; Z79.01 Long term (current) use of anticoagulants; Z79.891 Long term (current) use of opiate analgesic; Z79.899 Other long term (current) drug therapy; Z88.0 Allergy status to penicillin
CPT/HCPCS: 10195; 27000; 50010; 50101; 50386; 50951; 56525; 56526; 56528; 57091; 57180; 62110; 62900; 70005

== ENCOUNTER 2019-11-01 16:57 | Emergency (ER) | payer BC ==
[~2019-11-01] VITALS: Ht 175.3 cm; Wt 109.3 kg
[~2019-11-01 16:57] MED LIST changes: +CEFDINIR300 MG PO; +DEMADEX20 MG PO; +ERTAPENEM1 GM IV; +FLEXERIL PO; +FLOMAX0.4 MG PO; +HUMALOG100 UNIT/1 SUBQ; +JANUVIA100 MG PO; +KETOCONAZOLE15 GM TOP; +LANTUS SUBQ; +MECLIZINE HCL25 M1 PO; +MIRALAX119 GM PO; +MUCINEX DM ER1 EACH PO; +NORCO 7.5-3251 EACH PO; +ROSUVASTATIN CA20 MG PO; +SYMBICORT160 MCG/4. INH; +VIAGRA100 MG PO; +XARELTO15 MG PO; +ZEASORB AF71 GM TOP
[2019-11-01 19:28] VITALS: BP 144/95
--- NOTE | 2019-11-01 19:49 | NUR ---
VAT CONSULTED FOR A PICC EVAL IN ER. PT HAD SLPICC IN [facility] AND LINE WAS BACKED UP WITH BLOOD WITH NO CAP. PT CONSENTED TO A NEW PICC AND A 4FRSLPICC PLACED IN [facility]. PT FINISHED ABX WHILE IN THE ER SO HE WOULD NOT BE BEHIND. ATTACHED AN EXTENSION SO HE CAN REACH IS LINE FOR HOME USE.
== END 2019-11-01 19:25 | disposition home or self-care (01) ==
LOC: ER 16:57
DX: T82.594A Other mechanical complication of infusion catheter, initial encounter (principal); T82.838A Hemorrhage due to vascular prosthetic devices, implants and grafts, initial encounter; Y83.8 Other surgical procedures as the cause of abnormal reaction of the patient, or of later complication, without mention of misadventure at the time of the procedure; Y92.89 Other specified places as the place of occurrence of the external cause; E11.9 Type 2 diabetes mellitus without complications; M19.90 Unspecified osteoarthritis, unspecified site; Z79.899 Other long term (current) drug therapy; Z88.0 Allergy status to penicillin
CPT/HCPCS: 27000

== ENCOUNTER → 2019-11-17 | Outpatient (CLI) | payer BC | LOC: HYPER 09:03 | DX: T87.81 Dehiscence of amputation stump (principal); L02.612 Cutaneous abscess of left foot; E11.69 Type 2 diabetes mellitus with other specified complication; M86.672 Other chronic osteomyelitis, left ankle and foot; M19.90 Unspecified osteoarthritis, unspecified site; Z79.01 Long term (current) use of anticoagulants; Z79.4 Long term (current) use of insulin; Y83.5 Amputation of limb(s) as the cause of abnormal reaction of the patient, or of later complication, without mention of misadventure at the time of the procedure ==

== ENCOUNTER → 2019-12-01 | Outpatient (CLI) | payer BC | LOC: HYPER 08:54 | DX: T87.81 Dehiscence of amputation stump (principal); L02.612 Cutaneous abscess of left foot; E11.69 Type 2 diabetes mellitus with other specified complication; M86.672 Other chronic osteomyelitis, left ankle and foot; M19.90 Unspecified osteoarthritis, unspecified site; Z79.01 Long term (current) use of anticoagulants; Z79.4 Long term (current) use of insulin; Y83.5 Amputation of limb(s) as the cause of abnormal reaction of the patient, or of later complication, without mention of misadventure at the time of the procedure ==

== ENCOUNTER → 2019-12-15 | Outpatient (CLI) | payer BC | LOC: HYPER 09:07 | DX: T81.49XD Infection following a procedure, other surgical site, subsequent encounter (principal); L02.612 Cutaneous abscess of left foot; E11.69 Type 2 diabetes mellitus with other specified complication; M86.672 Other chronic osteomyelitis, left ankle and foot; M19.90 Unspecified osteoarthritis, unspecified site; Z79.01 Long term (current) use of anticoagulants; Z79.4 Long term (current) use of insulin; Z79.84 Long term (current) use of oral hypoglycemic drugs; Z89.422 Acquired absence of other left toe(s); Y83.8 Other surgical procedures as the cause of abnormal reaction of the patient, or of later complication, without mention of misadventure at the time of the procedure ==

== ENCOUNTER → 2019-12-29 | Outpatient (CLI) | payer BC | LOC: HYPER 08:45 | PROVIDERS: ATTEND Emergency Medicine Emergency Medical Services | DX: T87.44 Infection of amputation stump, left lower extremity (principal); L02.612 Cutaneous abscess of left foot; L84 Corns and callosities; E11.69 Type 2 diabetes mellitus with other specified complication; M86.672 Other chronic osteomyelitis, left ankle and foot; M19.90 Unspecified osteoarthritis, unspecified site; Z79.01 Long term (current) use of anticoagulants; Z79.4 Long term (current) use of insulin; Z79.84 Long term (current) use of oral hypoglycemic drugs; Y83.5 Amputation of limb(s) as the cause of abnormal reaction of the patient, or of later complication, without mention of misadventure at the time of the procedure ==

== ENCOUNTER → 2020-01-12 | Outpatient (CLI) | payer BC | LOC: HYPER 08:48 | PROVIDERS: ATTEND Emergency Medicine Emergency Medical Services | DX: T87.34 Neuroma of amputation stump, left lower extremity (principal); L02.612 Cutaneous abscess of left foot; E11.69 Type 2 diabetes mellitus with other specified complication; M86.672 Other chronic osteomyelitis, left ankle and foot; E11.52 Type 2 diabetes mellitus with diabetic peripheral angiopathy with gangrene; I96 Gangrene, not elsewhere classified; M19.90 Unspecified osteoarthritis, unspecified site; Z79.01 Long term (current) use of anticoagulants; Z79.4 Long term (current) use of insulin; Z79.84 Long term (current) use of oral hypoglycemic drugs; Y83.5 Amputation of limb(s) as the cause of abnormal reaction of the patient, or of later complication, without mention of misadventure at the time of the procedure ==

== ENCOUNTER → 2020-01-26 | Outpatient (CLI) | payer BC | LOC: HYPER 09:02 | PROVIDERS: ATTEND Emergency Medicine Emergency Medical Services | DX: T87.44 Infection of amputation stump, left lower extremity (principal); L02.612 Cutaneous abscess of left foot; E11.69 Type 2 diabetes mellitus with other specified complication; M86.672 Other chronic osteomyelitis, left ankle and foot; E66.9 Obesity, unspecified; M19.90 Unspecified osteoarthritis, unspecified site; Z68.35 Body mass index [BMI] 35.0-35.9, adult; Z79.01 Long term (current) use of anticoagulants; Z79.4 Long term (current) use of insulin; Z79.84 Long term (current) use of oral hypoglycemic drugs; Y83.5 Amputation of limb(s) as the cause of abnormal reaction of the patient, or of later complication, without mention of misadventure at the time of the procedure ==

== ENCOUNTER → 2020-02-09 | Outpatient (CLI) | payer BC | LOC: HYPER 08:57 | PROVIDERS: ATTEND Emergency Medicine | DX: T87.44 Infection of amputation stump, left lower extremity (principal); L02.612 Cutaneous abscess of left foot; E11.69 Type 2 diabetes mellitus with other specified complication; M86.672 Other chronic osteomyelitis, left ankle and foot; E11.52 Type 2 diabetes mellitus with diabetic peripheral angiopathy with gangrene; I96 Gangrene, not elsewhere classified; E66.9 Obesity, unspecified; M19.90 Unspecified osteoarthritis, unspecified site; Z68.35 Body mass index [BMI] 35.0-35.9, adult; Z79.01 Long term (current) use of anticoagulants; Z79.4 Long term (current) use of insulin; Z79.84 Long term (current) use of oral hypoglycemic drugs; Y83.5 Amputation of limb(s) as the cause of abnormal reaction of the patient, or of later complication, without mention of misadventure at the time of the procedure ==

== ENCOUNTER → 2020-03-15 | Outpatient (CLI) | payer OTHER | LOC: HYPER 09:12 | PROVIDERS: ATTEND Emergency Medicine | DX: T87.44 Infection of amputation stump, left lower extremity (principal); L02.612 Cutaneous abscess of left foot; E11.69 Type 2 diabetes mellitus with other specified complication; M86.672 Other chronic osteomyelitis, left ankle and foot; E11.52 Type 2 diabetes mellitus with diabetic peripheral angiopathy with gangrene; I96 Gangrene, not elsewhere classified; E66.9 Obesity, unspecified; M19.90 Unspecified osteoarthritis, unspecified site; Z68.35 Body mass index [BMI] 35.0-35.9, adult; Z79.01 Long term (current) use of anticoagulants; Z79.4 Long term (current) use of insulin; Z79.84 Long term (current) use of oral hypoglycemic drugs; Y83.5 Amputation of limb(s) as the cause of abnormal reaction of the patient, or of later complication, without mention of misadventure at the time of the procedure ==